=== PATIENT | female | born 2000 | race Caucasian/White ===

== ENCOUNTER 2024-05-21 20:40 | Emergency (ER) | payer OTHER ==
[~2024-05-21] VITALS: Ht 167.6 cm; Wt 131.5 kg
[2024-05-21 20:52] VITALS: BP 152/95; PULSE 78; RESP 14; TEMP 97.5; O2SAT 99
[2024-05-21] MEDS: FLUORESCEIN OPTH STRIP 1 MG OP ONE (23:05)
[2024-05-21] MEDS ORDERED: VALA1TAB40 PO (23:11)
[2024-05-21] MEDS ORDERED: OFLOS OP (23:11)
== END 2024-05-21 23:19 | disposition home or self-care (01) ==
LOC: MED 20:40
DX: H10.9 Unspecified conjunctivitis (principal); Z79.899 Other long term (current) drug therapy
CPT/HCPCS: 99283